=== PATIENT | male | born 1945 | race Caucasian/White ===

== ENCOUNTER → 2022-02-05 | Outpatient (CLI) | payer MEDICARE, OTHER | END | disposition home or self-care (01) | LOC: RADMN 09:13 | PROVIDERS: ATTEND Physical Medicine & Rehabilitation Spinal Cord Injury Medicine | DX: S83.282A Other tear of lateral meniscus, current injury, left knee, initial encounter (principal); M75.112 Incomplete rotator cuff tear or rupture of left shoulder, not specified as traumatic; S83.512A Sprain of anterior cruciate ligament of left knee, initial encounter; M19.012 Primary osteoarthritis, left shoulder; S83.241A Other tear of medial meniscus, current injury, right knee, initial encounter; S83.511A Sprain of anterior cruciate ligament of right knee, initial encounter; M17.0 Bilateral primary osteoarthritis of knee; M76.892 Other specified enthesopathies of left lower limb, excluding foot; M77.8 Other enthesopathies, not elsewhere classified; M19.041 Primary osteoarthritis, right hand; M79.89 Other specified soft tissue disorders; M77.32 Calcaneal spur, left foot; M17.4 Other bilateral secondary osteoarthritis of knee; M75.111 Incomplete rotator cuff tear or rupture of right shoulder, not specified as traumatic; X58.XXXA Exposure to other specified factors, initial encounter; Y93.89 Activity, other specified; Y92.89 Other specified places as the place of occurrence of the external cause; Y99.8 Other external cause status | CPT/HCPCS: 73221; 73521; 73721; 73110-TC; 73130-TC; 73610-TC ==

== ENCOUNTER → 2022-02-11 | Outpatient (CLI) | payer MEDICARE, OTHER | END | disposition home or self-care (01) | LOC: RADMN 09:19 → EDUNIT# 10:00 | PROVIDERS: ATTEND Physical Medicine & Rehabilitation Spinal Cord Injury Medicine | DX: M51.36 Other intervertebral disc degeneration, lumbar region (principal); M48.061 Spinal stenosis, lumbar region without neurogenic claudication; M43.12 Spondylolisthesis, cervical region; M50.322 Other cervical disc degeneration at C5-C6 level; M50.323 Other cervical disc degeneration at C6-C7 level; M50.23 Other cervical disc displacement, cervicothoracic region; M48.02 Spinal stenosis, cervical region; R41.3 Other amnesia; M54.17 Radiculopathy, lumbosacral region; R55 Syncope and collapse; I48.91 Unspecified atrial fibrillation; M54.12 Radiculopathy, cervical region | CPT/HCPCS: 70551; 72141; 72148 ==